=== PATIENT | female | born 1990 | race Caucasian/White ===

== ENCOUNTER 2019-10-30 12:54 | Outpatient (RCR) | payer BC, SELFPAY ==
--- NOTE | ~2019-10-30 | US_ITS ---
EXAMINATION: US OB follow up w [facility] DATE: 10/30/2019 14:56 INDICATION: Postdates. TECHNIQUE: Real-time pelvic ultrasound was performed. COMPARISON: Ultrasound 03/19/2019 FINDINGS: There is a single living fetus in vertex presentation. The placenta is anterior. heart rate is 121 beats per minute (bpm). The amniotic fluid index is 13.6 cm, which is normal. The following biometric data were obtained: Biparietal diameter (BPD): 9.2 cm; head circumference (HC): 32.5 cm; abdominal circumference (AC): 34 .1 cm; femur length (FL): 7.3 cm. These measurements are concordant. Estimated weight is 3284 g +/- 493 g, which correlates with 22nd percentile when 10/29/19 is use d as estimated date of delivery. As single measurements, these parameters are each equal to the following estimated gestational ages: BPD: 37 weeks 4 days. HC: 36 weeks 6 days. AC: 38 weeks 0 days. FL: 37 weeks 3 days. estimated gestational age based solely on measurements from this exam is 37 weeks 3 days +/- 2 weeks 4 days. Biophysical profile performed by the technologist: breathing (30 sec sustained breathing in 30 minutes): 0 out of 2 movement (3 gross body movements in 30 minutes): 2 out of 2 tone (one episode of ljlfwes-ldrtnjhcl-unnasip limb movement): 2 out of 2 Amniotic fluid pocket (2 cm): 2 out of 2 Total score: 6 out of 8 IMPRESSION: 1. Single living fetus in vertex presentation. 2. Estimated weight is 3284 g +/- 493 g, which correlates with 22nd percentile when 10/29/19 is used as estimated date of delivery. This date was set by ultrasound on 03/19/2019. 3. Biophysical profile 6 out of 8. Reviewed, dictated and finalized at location A. IMPRESSION: 1. Single living fetus in vertex presentation. 2. Estimated weight is 3284 g +/- 493 g, which correlates with 22nd perc entile when 10/29/19 is used as estimated date of delivery. This date was set by ultrasound on 03/19/2019. 3. Biophysical profile 6 out of 8.
[2019-10-30 14:10] VITALS: BP 117/75; PULSE 68
--- NOTE | 2019-10-30 15:21 | PC.NURSE ---
Spoke with Dr. Palmer regarding NST and US results. May discharge to home.
== END 2019-11-05 07:38 | disposition home or self-care (01) ==
LOC: ANHOBOP 12:54
PROVIDERS: PCP Family Medicine; Visit Provider Obstetrics & Gynecology
DX: O48.0 Post-term pregnancy (principal); Z3A.40 40 weeks gestation of pregnancy
CPT/HCPCS: 59025; 76816; 76819

== ENCOUNTER 2019-11-04 04:30 | Inpatient (IN) | payer BC, SELFPAY ==
[2019-11-03 12:30] VITALS: BMI 33.7
[2019-11-04] VITALS (88 sets, daily range): BP systolic 92–163; BP diastolic 52–111; PULSE 73–135; TEMP 36.8–37.2; O2SAT 80–100
--- NOTE | 2019-11-04 07:34 | LDADM ---
This patient, Sabiha Dubon, was admitted to Labor/Delivery/Recovery 106 on 11/04/19 at 04:30. Plans for labor, pain management and were discussed with patient. Patient/family oriented to hospital policies and general routines including ID bracelet, bed and alarms, visiting hours, pain management, procedures, bathroom and other care routines, personal items, smoking policy, room service/diet and guest tray routines, security routines, and visiting hours. Patient/Family are encouraged to report perceived risks to care and to ask questions if they do not understand what they are told or what they should do. See OBIX for further documentation.
[2019-11-04 08:28] LABS: Basophils Absolute Auto 0.1 K/mm3 (0.0-0.1); Basophils Percent Auto 0.5 % (0.2-1.2); Eosinophils Absolute Auto 0.2 K/mm3 (0-0.3); Eosinophils Percent Auto 1.2 % (0-4.4); Hematocrit 35.2 % (37.0-47.0); Hemoglobin 11.7 g/dL (12.0-15.0); Immature Granulocyte Absolute 0.16 K/mm3 (0.00-0.031); Immature Granulocyte Percent A 1.2 % (0-0.5); Lymphocytes Absolute Auto 2.63 K/mm3 (0.9-3.2); Lymphocytes Percent Auto 19.3 % (18.3-44.2); Mean Corpuscular HGB Conc 33.2 g/dl (32-36); Mean Corpuscular Hemoglobin 30.9 pg (26-34); Mean Corpuscular Volume 92.9 fl (80-100); Mean Platelet Volume 11.1 fl (7.4-10.4); Monocytes Absolute Auto 0.8 K/mm3 (0.1-0.6); Neutrophils Absolute Auto 9.8 K/mm3 (1.3-6.7); Neutrophils Percent Auto 71.8 % (45.5-73.1); Platelet Count Result 258 k/mm3 (150-375); Red Blood Count 3.79 M/mm3 (4.2-5.4); Red Cell Distribution Width 13.7 % (11.5-14.5); White Blood Count 13.6 K/mm3 (4.5-10.0)
--- NOTE | 2019-11-04 08:36 | WPDOBADMIT ---
Obstetrics - Admit Note Admission Note: record reviewed. Additions to the history and/or subsequent changes in the physical findings follow. 29 y/o at 40 6/7 weeks here with contractions. GBS neg. AVSS NST 130 reactive TOCO: contractions every 2-6 min ABD soft, nontender, gravid, vertex EXT nontender Cervix 4/50/-2. Vertex. AROM with clear fluid. A: IUP at term in labor. P: Anticipate . Will augment labor as needed.
--- NOTE | 2019-11-04 11:47 | PM.OBPNLAB ---
Pain Control Date/time seen: 11/04/19 11:47 Comments: Irregular, mild contractions. Pelvic Exam Dilation (cm): 4 Effacement (%): 80 station: -2 Contractions Contraction pattern: Irregular Status status: Category l Assessment and Plan Comments: Plan to augment labor with oxytocin. Reviewed risk, benefits, alternatives in detail with patient.
[2019-11-04] MEDS: LACTATED RINGERS 1,000 ML 125 ML IV CONT ×2 (11:54→14:19)
[2019-11-04] MEDS: OXYTOCIN 30 UNITS/NS 500 ML 30 UNITS/500 ML BAG IV CONT (11:55)
[2019-11-04 13:56] LABS: Rapid Plasma Reagin Non-Reactive (NonReactive)
--- NOTE | 2019-11-04 14:18 | P.PNAN_ITS ---
Anes - Eval Pre Procedure Procedure: Labor epidural Date/Time: 11/04/19 14:18 Surgeon: Estela Preop Diagnosis: Abd pain with contractions Pre Op Diagnosis: contractions Patient Data Age: 29 Gender: F Height: 5 ft 6 in Weight: 95 kg Last Vital Signs Temp 98.2 F 11/04/19 13:30 Pulse 76 11/04/19 14:15 BP 145/81 H 11/04/19 14:15 Allergies Allergy/AdvReac Type Severity Reaction Status Date / Time morphine Allergy Dyspnea / Verified 10/12/19 15:22 SOB Home Medications Medication Instructions Recorded Confirmed Type PNV cmb#95-ferrous fumarate-FA 1 tablet PO DAILY 10/12/19 11/04/19 History [] dextroamphetamine-amphetamine 10 mg PO DAILY 10/12/19 11/04/19 History [Adderall] metoprolol tartrate [Lopressor] 100 mg PO DAILY 10/12/19 11/04/19 History Laboratory Tests 11/04/19 11/04/19 11/04/19 07:40 07:40 07:40 WBC 13.6 K/mm3 H K/mm3 (4.5-10.0) RBC 3.79 M/mm3 L M/mm3 (4.2-5.4) Hgb 11.7 g/dL L g/dL (12.0-15.0) Hct 35.2 % L % (37.0-47.0) MCV 92.9 fl fl (80-100) MCH 30.9 pg pg (26-34) MCHC 33.2 g/dl g/dl (32-36) RDW 13.7 % % (11.5-14.5) Plt Count 258 k/mm3 k/mm3 (150-375) MPV 11.1 fl H fl (7.4-10.4) Immature Gran % (Auto) 1.2 % H % (0-0.5) Neut % (Auto) 71.8 % % (45.5-73.1) Lymph % (Auto) 19.3 % % (18.3-44.2) [place] % (Auto) 6.0 % % (2.6-8.5) Eos % (Auto) 1.2 % % (0-4.4) Baso % (Auto) 0.5 % % (0.2-1.2) Lymph # (Auto) 2.63 K/mm3 K/mm3 (0.9-3.2) [place] # (Auto) 0.8 K/mm3 H K/mm3 (0.1-0.6) Eos # (Auto) 0.2 K/mm3 K/mm3 (0-0.3) Baso # (Auto) 0.1 K/mm3 K/mm3 (0.0-0.1) Abs Immat Gran (auto) 0.16 K/mm3 H K/mm3 (0.00-0.031) Absolute Neuts (auto) 9.8 K/mm3 H K/mm3 (1.3-6.7) Absolute Nucleated RBC 0.0 K/mm3 K/mm3 (0.0-0.012) Nucleated RBC % 0.0 % % (0.0-0.2) RPR Non-reactive (NonReactive) Blood Type A Positive Antibody Screen Negative Patient hx anesthesia problems: none Family hx anesthesia problems: none PMFSH Family History Family History Grandparent Hypothyroidism Social History Social History Smoking status: Never smoker Substance use: never Spiritual care concerns: No Exam Day of Procedure 11/04/19 14:18 Patient weight: normal Airway: Mallampati scale class II Neurological: alert and oriented
[2019-11-04] MEDS: ONDANSETRON INJ 4 MG/2 ML VIAL IV PUSH (18:19)
--- NOTE | 2019-11-04 18:58 | PM.OBPRVD ---
OB - Delivery Note Procedure Delivery date: 11/04/19 Procedure: Delivery augmentation: rupture of membranes and pitocin Delivery monitor: external FHT, external uterine and internal uterine Route of delivery: Laceration description: Perineal - 1st Degree Delivery repair: vicryl (3-0) Specimen: Yes (Cord blood) Estimated blood loss (mL): 122 Anesthesia type: Epidural Disposition: PACU Complications: None Narrative: 29 y/o at 40 6/7 weeks gestation who presented to the hospital with complaint of contractions. Labor was diagnosed. Amniotomy was performed with return of clear fluid. Labor was subsequently augmented with IV oxytocin. She received an epidural for pain control. Her labor progressed and her cervix dilated completely. She pushed with good effort and delivered the 's head to the perineum, followed by the body. The nose and mouth were bulb suctioned. After a delay, the cord was clamped and cut. The infant was handed off the field. Cord blood was collected. The placenta delivered spontaneously and was grossly normal in appearance. The usual 3 vessel cord was noted. A first degree midline perineal laceration was sustained. This was reapproximated using 3 0 Vicryl in the usual layered fashion. Excellent hemostasis resulted as did excellent reapproximation of the normal anatomy. Shallow bilateral periurethral lacerations were noted not to be bleeding and not to require repair. Needle and instrument counts were correct. The patient was taken to recovery room in stable condition. The infant went to the nursery in stable condition. I was present and scrubbed for the entire delivery. Baby Date of : 11/04/19 Time of : 18:41 Weeks of gestation at delivery: 40 Infant gender: Female Weight (pounds): 6 Weight (ounces): 10 presentation: vertex position: Left Occiput Anterior Placenta delivery description: Spontaneous and Normal Configuration cord vessel description: 3 Vessels score one minute: 9 score five minutes: 9
--- NOTE | 2019-11-04 19:01 | PM.OBDSVD ---
DS: Admitting Diagnosis Admitting Diagnosis Admitting Diagnosis: IUP at 40 6/7 weeks Labor DS: Discharge Diagnosis Discharge Diagnosis (1) (normal spontaneous vaginal delivery): Code(s): O80 - Encounter for full-term uncomplicated delivery Status: Acute OB - DS: Summary OB Procedures : None OB Procedures Intrapartum: Spontaneous Vag Delivery OB Procedures: : None Time Spent with Patient Time attestation: Total time spent providing and/or coordinating discharge services: DS: Data Data Completed and Pending Labs on day of discharge: Labs from last 24 hours 11/04/19 11/04/19 11/04/19 07:40 07:40 07:40 WBC 13.6 H RBC 3.79 L Hgb 11.7 L Hct 35.2 L MCV 92.9 MCH 30.9 MCHC 33.2 RDW 13.7 Plt Count 258 MPV 11.1 H Immature Gran % (Auto) 1.2 H Neut % (Auto) 71.8 Lymph % (Auto) 19.3 [place] % (Auto) 6.0 Eos % (Auto) 1.2 Baso % (Auto) 0.5 Lymph # (Auto) 2.63 [place] # (Auto) 0.8 H Eos # (Auto) 0.2 Baso # (Auto) 0.1 Abs Immat Gran (auto) 0.16 H Absolute Neuts (auto) 9.8 H Absolute Nucleated RBC 0.0 Nucleated RBC % 0.0 RPR Non-reactive Blood Type A Positive Antibody Screen Negative Discharge Plan Discharge Attending physician on discharge: Nikolay Palmer Discharging Clinician: Nikolay Palmer Patient Disposition: Home, Self-Care Activity: pelvic rest Diet: regular Discharge Instructions: Call or return if temperature above 100.4? F, increased abdominal pain, increased vaginal bleeding or any new problems. Stand Alone Forms: General Discharge Information Follow-up/Referrals: Nikolay Palmer MD [Physician] - (6 weeks) Discharge Medications: New ibuprofen 600 mg tablet 600 mg PO Q6H PRN (Reason: cramps) Qty: 30 RF: 0 No Action metoprolol tartrate [Lopressor] 100 mg Tablet 100 mg PO DAILY RF: 0 dextroamphetamine-amphetamine [Adderall] 10 mg Tablet 10 mg PO DAILY RF: 0 PNV cmb#95-ferrous fumarate-FA [] 28 mg iron- 800 mcg Tablet 1 tablet PO DAILY RF: 0 Date of admission: 11/04/19 04:30 Primary Care Provider: Kelli,Paul Mcclure Admitting Provider: Nikolay Palmer Attending physician on admission: Nikolay Palmer
[2019-11-04] MEDS: OXYTOCIN 30 UNITS/NS 500 ML 30 UNITS/500 ML BAG 125 UNITS IV CONT (19:16)
--- NOTE | 2019-11-04 21:27 | OBPPTRN ---
Patient transferred to post room #280 via w/c. Support person present. Oriented to unit, room, information board, rooming in, admission packet and security measures. Patient verbalizes understanding.
[2019-11-04] MEDS: IBUPROFEN 600 MG TABLET PO (23:45)
[2019-11-04] MEDS: TETANUS,DIPHTHERIA,AC PERTUSSIS ADULT (0.5 ML) BOOSTRIX IM (23:46)
[2019-11-05 00:52] VITALS: BP 131/83; PULSE 94; RESP 18; TEMP 36.9; O2SAT 98
[2019-11-05 05:11] LABS: Hematocrit 30.2 % (37.0-47.0); Hemoglobin 10.1 g/dL (12.0-15.0)
[2019-11-05] MEDS: IBUPROFEN 600 MG TABLET PO ×3 (06:55→21:07)
[2019-11-05] MEDS: MULTIVIT/MIN/PREN/FOL AC/IRON TABLET 1 TAB PO (06:56)
[2019-11-05] MEDS: DOCUSATE SODIUM 100 MG CAPSULE PO ×2 (06:56→14:21)
[2019-11-05 07:46] VITALS: BP 112/81; PULSE 81; RESP 18; TEMP 37.1; O2SAT 100
--- NOTE | 2019-11-05 08:00 | WPDANLDPN2 ---
Anes-Prog Note L&D Date/Time: 11/05/19 08:00 Comfortable throughout: labor and delivery Neuraxial method: epidural Epidural/Spinal procedure site: clean & non-tender Neuro status: Neuro function grossly intact. Cardiovascular status: normal Respiratory status: normal Airway patency: baseline Mental status: baseline Post-Op hydration status: normal Vital Signs: Last Vital Signs Temp 98.8 F 11/05/19 07:46 Pulse 81 11/05/19 07:46 Resp 18 11/05/19 07:46 BP 112/81 11/05/19 07:46 Pulse Ox 100 11/05/19 07:46 I/O: Intake & Output 11/04/19 11/05/19 11/05/19 23:59 07:59 15:59 Intake Total 1500 Output Total 25 Balance 1475 Post-procedural complaints: pruritis Patient feedback: Patient satisfied with anesthetic care.
--- NOTE | 2019-11-05 08:42 | PM.OBPNVD ---
OB - PN: Subj Subjective Date/time seen: 11/05/19 08:42 Narrative: Pain OK. OB - PN: Obj Data Labs CBC & Chem 7: 11/05/19 04:25 Labs: Laboratory Results - last 24 hr 11/04/19 11/04/19 11/05/19 07:40 07:40 04:25 Hgb 10.1 L Hct 30.2 L RPR Non-reactive Blood Type A Positive Antibody Screen Negative OB - PN A/P Plan Comments: A: PPD#1, doing well. P: Routine care. Exam Psych: Other: AVSS ABD soft, nontender, fundus firm EXT nontender
[2019-11-05 09:26] VITALS: PULSE 70
[2019-11-05] MEDS: METOPROLOL TARTRATE 50 MG TAB 100 MG PO (09:26)
--- NOTE | 2019-11-05 10:45 | PC.NURSE ---
Mother called out for assist with feeding. Mother states is eagerly latching she has some discomfort with feedings. Reviewed feeding cues, frequencies, duration of feedings, feeding elimination flow sheet, and signs of adequate intake. Demonstrated stimulation techniques to wake for feeding. Mother has to breast, is on and off with dimpling noted. When mother removed infant from breast nipple is blanched. Discussed infant may have had nipple under tongue. Reviewed positioning/alignment in cross cradle , holding breast in U hold and guided asymmetrical latch on. Several attempts before was able to latch correctly with nipple on tongue. nursed eagerly, with steady draws and occasional swallowing noted. Reviewed signs of a correct latch, effective nursing and suck swallow ratio. Mother reports she can feel the difference of the latch and has minimal tenderness with feeding. Discussed nipples may be tender from incorrect latch and may take a few feedings to heal. Infant was able to maintain latch without discomfort to mother. Nipple care reviewed. Instructed mother to call out for RN assistance if she is unable to latch for feeding or she has discomfort with nursing. Instructed feeding should be initiated three hours from start of last feeding or if feeding cues are noted before. Mother voiced understanding of information shared.
[2019-11-05 21:00] VITALS: BP 123/79; PULSE 81; RESP 16; TEMP 37; O2SAT 100
[2019-11-06 08:00] VITALS: BP 128/78; PULSE 67; RESP 18; TEMP 37.2
--- NOTE | 2019-11-06 08:00 | PC.NURSE ---
Patient was given the opportunity to view the discharge video Mother & Baby Care, The First Two Weeks and to ask questions. Patient declined viewing the video and has been given the mother/baby guide for home reference.
[2019-11-06] MEDS: IBUPROFEN 600 MG TABLET PO (08:06)
[2019-11-06] MEDS: MULTIVIT/MIN/PREN/FOL AC/IRON TABLET 1 TAB PO (08:06)
[2019-11-06] MEDS: DOCUSATE SODIUM 100 MG CAPSULE PO (08:06)
[2019-11-06 08:07] VITALS: PULSE 78
[2019-11-06] MEDS: METOPROLOL TARTRATE 50 MG TAB 100 MG PO (08:07)
[2019-11-06] MEDS: BENZOCAINE 20% AER SPR (*SP) 56 GM CAN 1 SPRAY TOPICAL (08:08)
[2019-11-06] MEDS: WITCH HAZEL 40 PADS 1 PAD TOPICAL (08:08)
--- NOTE | 2019-11-06 08:19 | PM.OBPNVD ---
OB - PN: Subj Subjective Date/time seen: 11/06/19 08:19 Narrative: Pain OK. Would like to go home. OB - PN: Obj Data Labs CBC & Chem 7: 11/05/19 04:25 OB - PN A/P Plan Comments: A: PPD#2, doing well. P: Home to f/u 6 weeks. Exam Psych: Other: AVSS ABD soft, nontender, fundus firm EXT nontender
--- NOTE | 2019-11-06 09:33 | PC.NURSE ---
Self care and infant care discharge instructions given to pt. including follow up visit date and time. Mother verbalized understanding. No questions or concerns voiced. Very pleasant and cooperative.
[2019-11-07 11:23] VITALS: BP 142/75; PULSE 78; RESP 20; TEMP 36.8
== END 2019-11-06 11:15 | disposition home or self-care (01) | DRG 807 ==
LOC: ANHLDR 20:39 → ANHOB2 21:29
PROVIDERS: Admitting Provider Obstetrics & Gynecology; PCP Family Medicine; Visit Provider Obstetrics & Gynecology
DX: O99.354 Diseases of the nervous system complicating childbirth (principal); Z37.0 Single live birth; Z3A.40 40 weeks gestation of pregnancy; G47.419 Narcolepsy without cataplexy; O70.0 First degree perineal laceration during delivery
CPT/HCPCS: 36415; 85014; 85018; 85025; 86592; 86850; 86900; 86901; 90715; A9270; J2405; J2590; J2795; J7120

== ENCOUNTER 2022-02-24 15:44 | Outpatient (CLI) | payer BC, SELFPAY ==
[2022-02-24] VITALS (16 sets, daily range): BP systolic 139–154; BP diastolic 87–94; PULSE 71–89; O2SAT 97–100; BMI 34.9
[2022-02-24 16:37] LABS: Basophils Absolute Auto 0.1 K/mm3 (0.0-0.1); Basophils Percent Auto 0.5 % (0.2-1.2); Eosinophils Absolute Auto 0.1 K/mm3 (0-0.3); Hematocrit 32.2 % (37.0-47.0); Hemoglobin 10.5 g/dL (12.0-15.0); Immature Granulocyte Absolute 0.14 K/mm3 (0.00-0.031); Lymphocytes Percent Auto 21.4 % (18.3-44.2); Mean Corpuscular HGB Conc 32.6 g/dl (32-36); Mean Corpuscular Hemoglobin 30.1 pg (26-34); Mean Corpuscular Volume 92.3 fl (80-100); Mean Platelet Volume 10.7 fl (7.4-10.4); Monocytes Absolute Auto 0.9 K/mm3 (0.1-0.6); Monocytes Percent Auto 6.5 % (2.6-8.5); Neutrophils Absolute Auto 9.8 K/mm3 (1.3-6.7); Neutrophils Percent Auto 69.6 % (45.5-73.1); Platelet Count Result 300 k/mm3 (150-375); Red Blood Count 3.49 M/mm3 (4.2-5.4); Red Cell Distribution Width 13.3 % (11.5-14.5)
[2022-02-24 16:38] LABS: Appearance Urine Clear (Clear); Bilirubin Urine Negative (Negative); Blood Urine Negative (Negative); Color Urine Yellow (Yellow); Glucose Urine UA Negative (Negative); Ketones Urine Negative (Negative); Leukocyte Esterase Ur Negative LEU/UL (Negative); Nitrate Urine Negative (Negative); Protein Urine Negative (Negative); Specific Grav Ur 1.015 (1.001-1.035); Urobilinogen Urine 0.2 mg/dL (<2.0); pH Urine 6.5 (5.0-9.0)
[2022-02-24 16:39] LABS: Add Urine Microscopic? NO
[2022-02-24 16:46] LABS: Alanine Aminotransferase 13 U/L (6-35); Albumin Level 3.2 g/dL (3.5-5.1); Alkaline Phosphatase 91 U/L (38-126); Anion Gap 8 mmol/L (8-16); Aspartate Amino Transferase 19 U/L (14-36); Bilirubin,Total 0.1 mg/dL (0.2-1.3); Blood Urea Nitrogen 8 mg/dL (7-17); Calcium 8.8 mg/dL (8.4-10.2); Carbon Dioxide 23 mmol/L (22-30); Chloride 104 mmol/L (98-107); Estimated Glomerular Filt Rate > 60; Glucose 75 mg/dL (65-110); Potassium 3.9 mmol/L (3.4-5.0); Sodium 135 mmol/L (137-145); Uric Acid 4.8 mg/dL (2.5-7.5)
--- NOTE | 2022-02-24 17:44 | PC.NURSE ---
Dr. Palmer informed of lab results except total protein / creatinine ratio as analyzer is down. Informed of reactive NST and discussed BP's. Order received for discharge and for pt to do 24 hr urine at home. Pt to be seen in office early next week.
[2022-02-24 18:38] LABS: Total Protein Urine Random 12 mg/dL; Ur Ttl Prot Creatinine Ratio 0.16 mg/mg (0-0.20)
== END 2022-02-24 18:25 | disposition home or self-care (01) ==
LOC: ANHOBOP 15:49 → ANHOBPP 15:49
PROVIDERS: Visit Provider Obstetrics & Gynecology
DX: O13.9 Gestational [pregnancy-induced] hypertension without significant proteinuria, unspecified trimester (principal); Z3A.00 Weeks of gestation of pregnancy not specified
CPT/HCPCS: 36415; 59025; 80053; 81003; 82570; 84156; 84550; 85025; 99199

== ENCOUNTER 2022-02-25 20:08 | Outpatient (NON) | payer BC, SELFPAY ==
[2022-02-25 20:41] VITALS: BMI 35.2
[2022-02-25 23:10] LABS: Collection Time Urine 24 HOURS
[2022-02-25 23:11] LABS: Total Volume 24 Hour Urine 1800 ml
[2022-02-25 23:19] LABS: Creatinine Clearance Urine 132.3 ml/min (75-125); Creatinine Urine 77.6 mg/dL; Patient Weight 224 Lbs
[2022-02-27 13:08] LABS: Total Protein Urine 24 Hr 180 mg/24hr (28-141); Total Protein Urine Random 10 mg/dL
== END 2022-02-25 20:09 | disposition home or self-care (01) ==
LOC: ANHOBOP 20:16
PROVIDERS: Visit Provider Obstetrics & Gynecology
DX: O13.9 Gestational [pregnancy-induced] hypertension without significant proteinuria, unspecified trimester (principal); Z3A.00 Weeks of gestation of pregnancy not specified
CPT/HCPCS: 81050; 82575; 84156

== ENCOUNTER 2022-03-07 18:44 | Outpatient (CLI) | payer BC, SELFPAY ==
[2022-03-07 19:14] LABS: Basophils Absolute Auto 0.1 K/mm3 (0.0-0.1); Basophils Percent Auto 0.5 % (0.2-1.2); Eosinophils Absolute Auto 0.2 K/mm3 (0-0.3); Eosinophils Percent Auto 1.2 % (0-4.4); Hematocrit 34.6 % (37.0-47.0); Hemoglobin 11.1 g/dL (12.0-15.0); Immature Granulocyte Percent A 1.3 % (0-0.5); Lymphocytes Absolute Auto 3.74 K/mm3 (0.9-3.2); Lymphocytes Percent Auto 24.1 % (18.3-44.2); Mean Corpuscular HGB Conc 32.1 g/dl (32-36); Mean Corpuscular Hemoglobin 30.2 pg (26-34); Mean Platelet Volume 10.3 fl (7.4-10.4); Monocytes Absolute Auto 0.9 K/mm3 (0.1-0.6); Monocytes Percent Auto 5.5 % (2.6-8.5); Neutrophils Absolute Auto 10.5 K/mm3 (1.3-6.7); Neutrophils Percent Auto 67.4 % (45.5-73.1); Nucleated Red Blood Cells Perc 0.1 % (0.0-0.2); Platelet Count Result 307 k/mm3 (150-375); Red Blood Count 3.68 M/mm3 (4.2-5.4); Red Cell Distribution Width 13.9 % (11.5-14.5); White Blood Count 15.6 K/mm3 (4.5-10.0)
[2022-03-07 19:16] LABS: Appearance Urine Clear (Clear); Bilirubin Urine Negative (Negative); Blood Urine Negative (Negative); Color Urine Yellow (Yellow); Glucose Urine UA Negative (Negative); Ketones Urine Negative (Negative); Leukocyte Esterase Ur Negative LEU/UL (NEGATIVE); Nitrate Urine Negative (Negative); Protein Urine 1+ mg/dL (Negative); Urobilinogen Urine 0.2 mg/dL (<2.0)
[2022-03-07 19:20] LABS: Mucus Urine Rare /lpf; RBC Urine 0-2 /hpf (0-2); Squamous Epithelial Cell Urine Rare /hpf (Few); WBC Urine 0-3 /hpf (0-3)
[2022-03-07 19:28] LABS: Creatinine Urine 90.7 mg/dL; Total Protein Urine Random 22 mg/dL; Ur Ttl Prot Creatinine Ratio 0.24 mg/mg (0-0.20)
[2022-03-07 19:31] VITALS: BP 135/91; PULSE 72
[2022-03-07 19:34] LABS: Add Urine Microscopic? YES; Alanine Aminotransferase 14 U/L (6-35); Albumin Level 3.6 g/dL (3.5-5.1); Alkaline Phosphatase 103 U/L (38-126); Anion Gap 10 mmol/L (8-16); Aspartate Amino Transferase 21 U/L (14-36); Bilirubin,Total 0.2 mg/dL (0.2-1.3); Blood Urea Nitrogen 7 mg/dL (7-17); Calcium 8.4 mg/dL (8.4-10.2); Carbon Dioxide 24 mmol/L (22-30); Chloride 101 mmol/L (98-107); Estimated Glomerular Filt Rate > 60; Glucose 81 mg/dL (65-110); Potassium 3.4 mmol/L (3.4-5.0); Sodium 135 mmol/L (137-145); Uric Acid 4.8 mg/dL (2.5-7.5)
[2022-03-07] MEDS: BETAMETHASONE SOD PHOS/ACETATE 30 MG/5 ML VIAL 12 MG IM (19:42)
[2022-03-07 19:46] VITALS: BP 147/87; PULSE 69
--- NOTE | 2022-03-07 20:08 | PC.NURSE ---
183- received call from Dr. Palmer- orders received for NST, PIH labs, Betamethasone #1, for IUGR 2% and elevated BP in office. \ 1949- called Dr. Palmer- labs reviewed, BP's reviewed. FHT reviewed. orders to d/c home with instructions for pt to return to L&D 03/08/[address] for b[address] #2. Dr. Palmer's office will contact pt on Monday
== END 2022-03-07 20:00 | disposition home or self-care (01) ==
LOC: ANHOBOP 18:49 → ANHLDR 18:52
PROVIDERS: Visit Provider Obstetrics & Gynecology
DX: O13.9 Gestational [pregnancy-induced] hypertension without significant proteinuria, unspecified trimester (principal); Z3A.00 Weeks of gestation of pregnancy not specified
CPT/HCPCS: 36415; 59025; 80053; 81001; 82570; 84156; 84550; 85025; 87086; 96372; 99199; J0702

== ENCOUNTER 2022-03-08 19:35 | Outpatient (CLI) | payer BC, SELFPAY ==
[2022-03-08] MEDS: BETAMETHASONE SOD PHOS/ACETATE 30 MG/5 ML VIAL 12 MG IM (19:52)
== END 2022-03-08 19:36 | disposition home or self-care (01) ==
LOC: ANHOBOP 19:39
PROVIDERS: Visit Provider Obstetrics & Gynecology
DX: O35.CXX0 Maternal care for other (suspected) fetal abnormality and damage, fetal pulmonary anomalies, not applicable or unspecified (principal); Z3A.00 Weeks of gestation of pregnancy not specified
CPT/HCPCS: 96372; J0702

== ENCOUNTER 2022-03-11 13:46 | Outpatient (RCR) | payer BC, SELFPAY ==
[2022-03-11 14:43] VITALS: BP 141/85; PULSE 68
== END 2022-05-06 07:35 | disposition home or self-care (01) ==
LOC: ANHOBOP 13:46
PROVIDERS: Visit Provider Obstetrics & Gynecology
DX: O36.5930 Maternal care for other known or suspected poor fetal growth, third trimester, not applicable or unspecified (principal); Z3A.37 37 weeks gestation of pregnancy
CPT/HCPCS: 59025

== ENCOUNTER 2022-03-14 18:01 | Inpatient (IN) | payer BC, SELFPAY ==
[2022-03-14] VITALS (19 sets, daily range): BP systolic 128–189; BP diastolic 69–106; PULSE 71–90; TEMP 36.2–36.3; BMI 35.6
--- NOTE | 2022-03-14 18:25 | WPDANESEPP ---
Anes - Eval Pre Procedure Procedure: Labor epidural Date/Time: 03/14/22 18:25 Surgeon: Estela Preop Diagnosis: Abd pain with contractions Pre Op Diagnosis: Induction of Labor Patient Data Age: 31 Gender: F Height: Weight: Allergies Allergy/AdvReac Type Severity Reaction Status Date / Time morphine Allergy Dyspnea / Verified 10/12/19 15:22 SOB Home Medications Medication Instructions Recorded Confirmed Type dextroamphetamine-amphetamine 10 10 mg PO DAILY 10/12/19 02/24/22 History mg tablet (Adderall) metoprolol tartrate 100 mg tablet 100 mg PO DAILY 10/12/19 02/24/22 History (Lopressor) vit no.95-ferrous 1 tablet PO DAILY 10/12/19 02/24/22 History fumarate 28 mg-folic acid 800 mcg tablet () Patient hx anesthesia problems: none Family hx anesthesia problems: none Results Review: All pre-operative results and documents have been reviewed as part of the pre-operative evaluation. [facility] Past Medical History Medical History (Updated 03/14/22 @ 18:30 by Winston Sharp CRNA) IUGR (intrauterine growth restriction) Morbid obesity Narcolepsy Neurologic cardiac syncope and not yet delivered Family History Family History Grandparent Hypothyroidism Daughter Congenital abnormal shape of tricuspid valve Social History Social History Smoking status: Never smoker Substance use: never Spiritual care concerns: No Exam Day of Procedure 03/14/22 18:25 Patient weight: morbidly obese Airway: Mallampati scale class II
[2022-03-14 19:08] LABS: Basophils Absolute Auto 0.1 K/mm3 (0.0-0.1); Basophils Percent Auto 0.4 % (0.2-1.2); Eosinophils Absolute Auto 0.1 K/mm3 (0-0.3); Eosinophils Percent Auto 0.6 % (0-4.4); Hemoglobin 10.9 g/dL (12.0-15.0); Immature Granulocyte Percent A 0.8 % (0-0.5); Lymphocytes Absolute Auto 3.13 K/mm3 (0.9-3.2); Lymphocytes Percent Auto 23.5 % (18.3-44.2); Mean Corpuscular Hemoglobin 30.4 pg (26-34); Mean Corpuscular Volume 92.2 fl (80-100); Mean Platelet Volume 10.7 fl (7.4-10.4); Monocytes Absolute Auto 0.8 K/mm3 (0.1-0.6); Monocytes Percent Auto 6.2 % (2.6-8.5); Neutrophils Absolute Auto 9.1 K/mm3 (1.3-6.7); Neutrophils Percent Auto 68.5 % (45.5-73.1); Platelet Count Result 308 k/mm3 (150-375); Red Blood Count 3.58 M/mm3 (4.2-5.4); Red Cell Distribution Width 13.7 % (11.5-14.5); White Blood Count 13.3 K/mm3 (4.5-10.0)
[2022-03-14] MEDS: DINOPROSTONE 10 MG VAG INSERT VAGINAL (19:17)
--- NOTE | 2022-03-14 22:08 | PC.NURSE ---
Addendum entered by Hilary Aragon RN 03/14/22 23:22: Dr. Palmer made aware of pt having neck pain that she bellieves is causing her to have a headache. Pt is denying all of s/s. Original Note: Spoke with Dr. Palmer about patients elevated BP. Orders for CMP, Uric acid and protein creatine ration in urine.
[2022-03-14 22:36] LABS: Creatinine Urine 114.4 mg/dL; Total Protein Urine Random 27 mg/dL; Ur Ttl Prot Creatinine Ratio 0.24 mg/mg (0-0.20)
[2022-03-14 22:37] LABS: Add Urine Microscopic? YES; Appearance Urine Clear (Clear); Bilirubin Urine Negative (Negative); Blood Urine Negative (Negative); Color Urine Yellow (Yellow); Glucose Urine UA Negative (Negative); Ketones Urine Negative (Negative); Leukocyte Esterase Ur Negative LEU/UL (NEGATIVE); Mucus Urine Rare /lpf; Nitrate Urine Negative (Negative); Protein Urine 1+ mg/dL (Negative); RBC Urine 0-2 /hpf (0-2); Specific Grav Ur 1.023 (1.001-1.035); Squamous Epithelial Cell Urine Rare /hpf (Few); Urobilinogen Urine Negative mg/dL (<2.0); WBC Urine 0-3 /hpf (0-3)
[2022-03-14 22:40] LABS: Alanine Aminotransferase 14 U/L (6-35); Albumin Level 3.4 g/dL (3.5-5.1); Alkaline Phosphatase 104 U/L (38-126); Anion Gap 10 mmol/L (8-16); Aspartate Amino Transferase 24 U/L (14-36); Bilirubin,Total 0.2 mg/dL (0.2-1.3); Blood Urea Nitrogen 14 mg/dL (7-17); Calcium 8.4 mg/dL (8.4-10.2); Carbon Dioxide 21 mmol/L (22-30); Chloride 103 mmol/L (98-107); Estimated CRCL calculation 118 ml/min; Estimated Glomerular Filt Rate > 60; Glucose 85 mg/dL (65-110); Potassium 3.8 mmol/L (3.4-5.0); Sodium 134 mmol/L (137-145); Uric Acid 5.8 mg/dL (2.5-7.5)
--- NOTE | 2022-03-14 22:59 | PC.NURSE ---
Called Dr. Palmer with pt 2 severe BP and labs. Orders for Procardia 10 and then to follow the HTN protocol after as needed.
[2022-03-14] MEDS: NIFEdipine 10 MG CAPSULE PO (23:02)
--- NOTE | 2022-03-14 23:06 | PC.NURSE ---
report given to LIDA Flores
[2022-03-14] MEDS: NIFEdipine 10 MG CAPSULE 20 MG PO (23:31)
[2022-03-15] VITALS (184 sets, daily range): BP systolic 74–175; BP diastolic 37–118; PULSE 65–250; RESP 18; TEMP 36.1–37.2; O2SAT 99–100
[2022-03-15] MEDS: LACTATED RINGERS 1,000 ML 125 ML IV CONT ×3 (07:48→14:33)
[2022-03-15] MEDS: OXYTOCIN 30 UNITS/NS 500 ML 30 UNITS/500 ML BAG IV CONT (07:51)
[2022-03-15] MEDS: ACETAMINOPHEN 500 MG TABLET 1000 MG PO (08:42)
--- NOTE | 2022-03-15 08:47 | P.HP_ITS ---
Obstetrics - Admit Note Admission Note: record reviewed. Additions to the history and/or subsequent changes in the physical findings follow. 31 y/o at 38 weeks with EFW 2nd percentile. CANDELARIA has been normal. A few elevated bp recently, but labs have been OK. Pain in neck, radiating up to temples today. No visual field change or midepigastric / RUQ pain. No swelling. No bleeding. Good movement. She was given steroids last week. Here for scheduled induction of labor. Cervidil last night, has b een withdrawn. Now feeling some contractions. Also had some bp in the 160/90 range last evening, treated with two doses of nifedipine 10 mg. AVSS BP 140s/80s now NST reactive TOCO: irregular contractions. ABD soft, nontender, gravid, vertex EXT nontender Cervix 2/80/-2. AROM with clear fluid. Vertex. A: IUP at term with IUGR, now with gestational hypertension. She has a headache which seems musculoskeletal. Labs and clinical picture do not suggest preeclampsia, but that remains in the differential diagnosis. P: Oxytocin. Tylenol for headache. Anticipate .
[2022-03-15 09:21] LABS: Rapid Plasma Reagin Non-Reactive (NonReactive)
[2022-03-15] MEDS: PHENYLEPHRINE 1,000 MCG/10 ML SYRINGE 100 MCG IV PUSH (12:25)
--- NOTE | 2022-03-15 12:56 | PM.OBPNLAB ---
Pain Control Date/time seen: 03/15/22 12:56 Comments: Comfortable with epidural. Headache resolved. AVSS bp 120/80 NST reactive, but some variable decelerations with contractions. Good FHR response to scalp stimulation on exam. Cervix 4/80/-2 Continue labor. Consider amnioinfusion.
[2022-03-15] MEDS: SODIUM CHLORIDE 0.9% IV 300 ML 180 ML I-UTERINE (13:03)
--- NOTE | 2022-03-15 17:08 | PM.OBPRVD ---
OB - Delivery Note Procedure Delivery date: 03/15/22 Procedure: Induction of labor with Events: Gestational Hypertension and Intrauterine Growth Restriction (IUGR) Induction method: Per Pitocin Protocol Delivery augmentation: Rupture of Membranes Delivery monitor: External Uterine and Internal Uterine Route of delivery: Laceration Description: Vaginal Delivery repair: vicryl (3-0 vicryl) Specimen: Yes (cord blood, placenta) Quantitative Blood Loss (ml): 420 Anesthesia type: Epidural Disposition: PACU Complications: None Narrative: 31 y/o at 38 weeks gestation who presented to the hospital for induction of labor for IUGR and gestational hypertension. Cervidil was placed overnight. She had two doses of nifedipine 10 mg po for elevated bp. The following morning the Cervidil was withdrawn. Oxytocin was administered intravenously. Amniotomy was performed with return of clear fluid. She received an epidural for pain control. Her labor progressed and her cervix dilated completely. She pushed with good effort and delivered the 's head to the perineum, followed by the body. The nose and mouth were bulb suctioned. After a delay, the cord was clamped and cut. The infant was handed off the field. Cord blood was collected. The placenta delivered spontaneously and was grossly normal in appearance. The usual 3 vessel cord was noted. A distal vaginal laceration was noted. This was reapproximated using a single figure of eight suture of 3 0 Vicryl. Excellent hemostasis resulted as did excellent reapproximation of the normal anatomy. Needle and instrument counts were correct. The patient was taken to recovery room in stable condition. The went to the nursery in stable condition. I was present and scrubbed for the entire delivery. [place] Baby Date of : 03/15/22 Time of : 16:49 Weeks of gestation at delivery: 38 Infant gender: Male Weight (pounds): 4 Weight (ounces): 8 presentation: vertex position: Right Occiput Posterior Placenta delivery description: Spontaneous Cord Vessel Description: 3 Vessels and Delayed Cord Clamping score one minute: 9 score five minutes: 9
--- NOTE | 2022-03-15 17:13 | PM.OBDSVD ---
DS: Admitting Diagnosis Discharge Date 03/17/22 Admitting Diagnosis IUP at 38 weeks IUGR Gestational hypertension DS: Discharge Diagnosis Discharge Diagnosis (1) (normal spontaneous vaginal delivery): Code(s): O80 - Encounter for full-term uncomplicated delivery Status: Acute (2) Gestational hypertension: Code(s): O13.9 - Gestational [-induced] hypertension without significant proteinuria, unspecified trimester Status: Acute OB - DS: Summary OB Procedures : PIH Mgmt OB Procedures Intrapartum: Spontaneous Vag Delivery OB Procedures: : None Time Spent with Patient Time attestation: Total time spent providing and/or coordinating discharge services: DS: Data Data Completed and Pending Labs on day of discharge: Labs from last 24 hours 03/14/22 03/14/22 03/14/22 22:19 22:19 22:19 WBC RBC Hgb Hct MCV MCH MCHC RDW Plt Count MPV Immature Gran % (Auto) Neut % (Auto) Lymph % (Auto) [place] % (Auto) Eos % (Auto) Baso % (Auto) Lymph # (Auto) [place] # (Auto) Eos # (Auto) Baso # (Auto) Abs Immat Gran (auto) Absolute Neuts (auto) Absolute Nucleated RBC Nucleated RBC % Sodium 134 L Potassium 3.8 Chloride 103 Carbon Dioxide 21 L Anion Gap 10 BUN 14 D Creatinine 0.70 Estim Creat Clear Calc 118 Estimated GFR > 60 Glucose 85 Uric Acid 5.8 Calcium 8.4 Total Bilirubin 0.2 AST 24 ALT 14 Alkaline Phosphatase 104 Total Protein 6.0 L Albumin 3.4 L Urine Color Yellow Urine Appearance Clear Urine pH 6.0 Ur Specific [place] 1.023 Urine Protein 1+ H Urine Glucose (UA) Negative Urine Ketones Negative Ur Blood (Man) Negative Urine Nitrate Negative Urine Bilirubin Negative Urine Urobilinogen Negative Ur Leukocyte Esterase Negative Urine RBC 0-2 Urine WBC 0-3 Ur Squamous Epith Cells Rare Urine Mucus Rare U Random Total Protein 27 Urine Creatinine 114.4 Protein/Creat Ratio 2 0.24 H RPR Blood Type Antibody Screen 03/14/22 03/14/22 03/14/22 18:58 18:58 18:58 WBC 13.3 H RBC 3.58 L Hgb 10.9 L Hct 33.0 L MCV 92.2 MCH 30.4 MCHC 33.0 RDW 13.7 Plt Count 308 MPV 10.7 H Immature Gran % (Auto) 0.8 H Neut % (Auto) 68.5 Lymph % (Auto) 23.5 [place] % (Auto) 6.2 Eos % (Auto) 0.6 Baso % (Auto) 0.4 Lymph # (Auto) 3.13 [place] # (Auto) 0.8 H Eos # (Auto) 0.1 Baso # (Auto) 0.1 Abs Immat Gran (auto) 0.10 H Absolute Neuts (auto) 9.1 H Absolute Nucleated RBC 0.0 Nucleated RBC % 0.0 Sodium Potassium Chloride Carbon Dioxide Anion Gap BUN Creatinine Estim Creat Clear Calc Estimated GFR Glucose Uric Acid Calcium Total Bilirubin AST ALT Alkaline Phosphatase Total Protein Albumin Urine Color Urine Appearance Urine pH Ur Specific [place] Urine Protein Urine Glucose (UA) Urine Ketones Ur Blood (Man) Urine Nitrate Urine Bilirubin Urine Urobilinogen Ur Leukocyte Esterase Urine RBC Urine WBC Ur Squamous Epith Cells Urine Mucus U Random Total Protein Urine Creatinine Protein/Creat Ratio 2 RPR Non-reactive Blood Type A Positive Antibody Screen Negative Discharge Plan Discharge Attending physician on discharge: Nikolay Palmer Discharging Clinician: Nikolay Palemr Patient Disposition: Home, Self-Care Activity: pelvic rest Diet: regular Discharge Instructions: Call or return if temperature above 100.4? F, increased abdominal pain, increased vaginal bleeding or any new problems. Stand Alone Forms: General Discharge Information Follow-up/Referrals: Nikolay Palmer MD [Physician] - 6 Weeks Discharge Medications: New ibuprofen 600 mg tablet 60
[2022-03-15] MEDS: OXYTOCIN 30 UNITS/NS 500 ML 30 UNITS/500 ML BAG 125 UNITS (18:42)
[2022-03-15] MEDS: miSOPROStol 200 MCG TABLET 1000 MCG RECTAL (18:56)
[2022-03-15] MEDS: ACETAMINOPHEN 325 MG TABLET 650 MG PO (19:03)
--- NOTE | 2022-03-15 20:22 | PC.NURSE ---
Patient transferred to post room #285 via (W/C). Support person present. Oriented to unit, room, information board, rooming in, admission packet and security measures. Patient verbalizes understanding.
[2022-03-16] VITALS (7 sets, daily range): BP systolic 118–140; BP diastolic 64–98; PULSE 79–98; RESP 16–18; TEMP 36.1–37.1; O2SAT 98–99
[2022-03-16] MEDS: IBUPROFEN 600 MG TABLET PO ×2 (05:18→21:05)
[2022-03-16 05:38] LABS: Hematocrit 30.3 % (37.0-47.0); Hemoglobin 9.8 g/dL (12.0-15.0); Mean Corpuscular HGB Conc 32.3 g/dl (32-36); Mean Corpuscular Hemoglobin 30.1 pg (26-34); Mean Corpuscular Volume 92.9 fl (80-100); Mean Platelet Volume 10.4 fl (7.4-10.4); Platelet Count Result 283 k/mm3 (150-375); Red Blood Count 3.26 M/mm3 (4.2-5.4); Red Cell Distribution Width 13.9 % (11.5-14.5); White Blood Count 16.9 K/mm3 (4.5-10.0)
[2022-03-16 05:53] LABS: Alanine Aminotransferase 13 U/L (6-35); Albumin Level 2.7 g/dL (3.5-5.1); Alkaline Phosphatase 84 U/L (38-126); Anion Gap 3 mmol/L (8-16); Aspartate Amino Transferase 23 U/L (14-36); Bilirubin,Total 0.2 mg/dL (0.2-1.3); Blood Urea Nitrogen 9 mg/dL (7-17); Calcium 7.6 mg/dL (8.4-10.2); Carbon Dioxide 22 mmol/L (22-30); Chloride 107 mmol/L (98-107); Estimated CRCL calculation 135 ml/min; Estimated Glomerular Filt Rate > 60; Glucose 80 mg/dL (65-110); Potassium 4.1 mmol/L (3.4-5.0); Sodium 132 mmol/L (137-145); Uric Acid 4.5 mg/dL (2.5-7.5)
--- NOTE | 2022-03-16 08:44 | WPDANESPN ---
Anes - Prog Note Post-Op Date/Time: 03/16/22 08:44 Cardiovascular status: normal Respiratory status: normal Airway patency: baseline Mental status: baseline Post-Op hydration status: normal Vital Signs: Last Vital Signs Temp 37.0 C 03/16/22 05:05 Pulse 98 03/16/22 05:05 Resp 18 03/16/22 05:05 BP 138/95 H 03/16/22 05:05 Pulse Ox 98 03/16/22 05:05 O2 Del Method Room Air 03/15/22 22:11 Pain Score (VAS): 0 I/O: Intake & Output 03/15/22 03/16/22 03/16/22 23:59 07:59 15:59 Output Total 1141 Balance -1141 Laboratory Tests 03/16/22 05:31 03/16/22 05:31 03/14/22 03/16/22 03/16/22 18:58 05:31 05:31 WBC 16.9 H RBC 3.26 L Hgb 9.8 L Hct 30.3 L MCV 92.9 MCH 30.1 MCHC 32.3 RDW 13.9 Plt Count 283 MPV 10.4 Sodium 132 L Potassium 4.1 Chloride 107 Carbon Dioxide 22 Anion Gap 3 L BUN 9 D Creatinine 0.60 L Estim Creat Clear Calc 135 Estimated GFR > 60 Glucose 80 Uric Acid 4.5 Calcium 7.6 L Total Bilirubin 0.2 AST 23 ALT 13 Alkaline Phosphatase 84 Total Protein 5.0 L Albumin 2.7 L RPR Non-reactive Microbiology 03/14/22 22:19 Urine Clean Catch Urine Culture - Final Post-procedural complaints: none Patient Feedback: Patient satisfied with anesthetic care.
[2022-03-16] MEDS: DOCUSATE SODIUM 100 MG CAPSULE PO ×2 (08:58→15:58)
[2022-03-16] MEDS: MULTIVIT/MIN/PREN/FOL AC/IRON TABLET 1 TAB PO (08:58)
[2022-03-16] MEDS: POLYSACCHARIDE IRON COMPLEX 150 MG CAPSULE PO ×2 (08:58→15:57)
[2022-03-16] MEDS: METOPROLOL TARTRATE 50 MG TAB 100 MG PO (08:58)
--- NOTE | 2022-03-16 11:52 | PM.OBPNVD ---
OB - PN: Subj Subjective Date/time seen: 03/16/22 11:52 Narrative: Pain OK. Would like circumcision for son. OB - PN: Obj Data Labs CBC & Chem 7: 03/16/22 05:31 03/16/22 05:31 Labs: Laboratory Results - last 24 hr 03/16/22 03/16/22 05:31 05:31 WBC 16.9 H RBC 3.26 L Hgb 9.8 L Hct 30.3 L MCV 92.9 MCH 30.1 MCHC 32.3 RDW 13.9 Plt Count 283 MPV 10.4 Sodium 132 L Potassium 4.1 Chloride 107 Carbon Dioxide 22 Anion Gap 3 L BUN 9 D Creatinine 0.60 L Estim Creat Clear Calc 135 Estimated GFR > 60 Glucose 80 Uric Acid 4.5 Calcium 7.6 L Total Bilirubin 0.2 AST 23 ALT 13 Alkaline Phosphatase 84 Total Protein 5.0 L Albumin 2.7 L OB - PN A/P Plan Comments: A: PPD#1, doing well. P: Reviewed circumcision. Routine care. Exam Psych: Other: AVSS ABD soft, nontender, fundus firm EXT nontender
--- NOTE | 2022-03-16 14:08 | PC.NURSE ---
[id number] Introductions were made, then consulted with patient to assess needs related to . Mother led the conversation with her?plans to feed?her infant and the?experience so far. Resources provided for inpatient and outpatient services using a resource guide and mom/baby guide. Mother voiced understanding of information and will call if there is a request for assistance. Reported to primary RN.
[2022-03-16] MEDS: ACETAMINOPHEN 325 MG TABLET 650 MG PO (15:57)
[2022-03-17 07:55] VITALS: BP 125/76; PULSE 86; RESP 16; TEMP 36.6; O2SAT 99
[2022-03-17 08:26] VITALS: PULSE 88
[2022-03-17] MEDS: DOCUSATE SODIUM 100 MG CAPSULE PO (08:26)
[2022-03-17] MEDS: METOPROLOL TARTRATE 50 MG TAB 100 MG PO (08:26)
[2022-03-17] MEDS: POLYSACCHARIDE IRON COMPLEX 150 MG CAPSULE PO (08:26)
[2022-03-17] MEDS: MULTIVIT/MIN/PREN/FOL AC/IRON TABLET 1 TAB PO (08:26)
[2022-03-17] MEDS: TETANUS,DIPHTHERIA,AC PERTUSSIS ADULT (0.5 ML) BOOSTRIX IM (08:27)
--- NOTE | 2022-03-17 08:59 | PM.OBPNVD ---
OB - PN: Subj Subjective Date/time seen: 03/17/22 08:59 Narrative: Pain OK. Would like to go home. OB - PN: Obj Data Labs CBC & Chem 7: 03/16/22 05:31 03/16/22 05:31 OB - PN A/P Plan Comments: A: PPD#2, doing well. P: Home to f/u 6 weeks. Exam Psych: Other: AVSS ABD soft, nontender, fundus firm EXT nontender
--- NOTE | 2022-03-17 11:30 | PC.NURSE ---
Patient viewed the discharge video Mother & Baby Care, The First Two Weeks . Patient was given the opportunity and encouraged to ask questions. Patient verbalized understanding of information shared and has been given the mother/baby guide for home reference.
[2022-03-18 09:29] VITALS: BP 131/87; PULSE 81; RESP 20; TEMP 36.8; O2SAT 99
== END 2022-03-17 12:50 | disposition home or self-care (01) | DRG 807 ==
LOC: ANHLDR 03-15 17:16 → ANHOB2 03-15 21:16
PROVIDERS: Admitting Provider Obstetrics & Gynecology; Visit Provider Obstetrics & Gynecology
DX: O13.4 Gestational [pregnancy-induced] hypertension without significant proteinuria, complicating childbirth (principal); Z37.0 Single live birth; O71.4 Obstetric high vaginal laceration alone; Z3A.38 38 weeks gestation of pregnancy; O43.123 Velamentous insertion of umbilical cord, third trimester; O36.8330 Maternal care for abnormalities of the fetal heart rate or rhythm, third trimester, not applicable or unspecified; O36.5930 Maternal care for other known or suspected poor fetal growth, third trimester, not applicable or unspecified; Z23 Encounter for immunization
CPT/HCPCS: 36415; 80053; 81001; 82570; 84156; 84550; 85025; 85027; 86592; 86850; 86900; 86901; 87086; 88307; 90471; 90686; 90715; A9270; G0008; J2370; J2590; J2795; J7030; J7120